=== PATIENT | female | born 1980 | race Caucasian/White ===

== ENCOUNTER 2016-12-25 16:10 | Inpatient (IN) | payer OTHER ==
--- NOTE | ~2016-12-25 | DS ---
Unit #: [id number] #: [id number] Patient: CARLITO LUDWIG [id number] [facility] [address] [place] [address] [id number] MR#: [id number] NAME: CARLITO LUDWIG ROOM: P207 Age: 36 Sex: F Admission Date: 12/25/2016 : 1980 Discharge Date: 12/28/2016 Attending Physician: Dimitri Rios M.D. Primary Care Physician: Primary Care Physician No DISCHARGE SUMMARY REASON FOR ADMISSION Detox from heroin. DIAGNOSTIC STUDIES LABORATORY RESULTS: Remarkable for urine drug screen positive for cocaine and opioid. HOSPITAL COURSE The patient was admitted to inpatient unit on . The patient was treated with group therapy, individual therapy, and medication management. The patient responded well with the above modalities of treatment and detox protocol. Subsequently, the patient was discharged with a plan to follow up in outpatient program. DISCHARGE MEDICATIONS None. DISCHARGE DIAGNOSES Psychiatric: 1. Opioid use disorder, severe, F11.20. 2. Cocaine use disorder, severe, F14.20. 3. Mood disorder, not otherwise specified. Secondary diagnosis: Deferred. Medical diagnoses: Degenerative joint disease, chronic pain. Stressors: Psychosocial stressors. DISCHARGE INSTRUCTIONS The patient is to follow up in outpatient clinic as per social worker assistant. CONDITION ON DISCHARGE The patient was pleasant and cooperative. Denied any psychotic symptom or any suicidal ideation. PROGNOSIS Guarded. DIET AND ACTIVITY As tolerated. Dictated by... Unit #: [id number] #: [id number] Patient: CARLITO LUDWIG Bessy Bundy/bharatl TD: 12/28/2016 22:13 JOB #: [id number] DISCHARGE SUMMARY X Dimitri Rios MD X DISCHARGE SUMMARY
--- NOTE | ~2016-12-25 | HP ---
Unit #: [id number] #: [id number] Patient: CARLITO LUDWIG [id number] [facility] [address] [place] [address] [id number] MR#: [id number] NAME: CARLITO LUDWIG ROOM: P207 Age: 36 Sex: F Admission Date: 12/25/2016 : 1980 Attending Physician: Dimitri Rios M.D. Admitting Physician: Dimitri Rios M.D. Primary Care Physician: Primary Care Physician No HISTORY AND PHYSICAL HISTORY OF PRESENT ILLNESS The patient is a 36-year-old female who is requesting detox from heroin and cocaine. PAST MEDICAL HISTORY 1. Reflux. 2. Degenerative disc disease. PAST SURGICAL HISTORY Gastric bypass surgery. ALLERGIES Penicillin, latex, adhesive, Ultram, Neurontin and lactose. SOCIAL HISTORY Patient is unemployed and has been homeless for 5 days. She endorses tobacco, crack cocaine, amphetamines and heroin. FAMILY HISTORY Medically noncontributory. REVIEW OF SYSTEMS CONSTITUTIONAL: Denies fever. Endorses chills. HEENT: Denies sore throat, ear pain or runny nose. CARDIOVASCULAR: Denies chest pain, irregular heart rhythm or palpitations. CHEST: Denies shortness of breath or cough. No hemoptysis. GASTROINTESTINAL: Endorses nausea. Denies vomiting, diarrhea or chronic constipation. ENDOCRINE: Denies increased thirst or urination. Denies recent significant weight loss or gain. GENITOURINARY: Denies dysuria, frequency, or hematuria. SKIN: Denies rashes. HEMATOLOGIC: Denies increased bleeding or bruising. MUSCULOSKELETAL: Denies hot, swollen joints. No generalized muscle pain. NEUROLOGIC: Denies problems with speech, vision, numbness, tingling. Denies loss of bowel or bladder control. PHYSICAL EXAMINATION GENERAL: Patient is awake, alert, in no acute distress. VITAL SIGNS: Temperature 98.4, heart rate 88, respirations 18, blood pressure 120/67. HEIGHT: 5 feet 6 inches. WEIGHT: 150 pounds. Unit #: [id number] #: [id number] Patient: CARLITO LUDWIG SKIN: Warm, dry without any unusual rashes or lesions. HEENT: Head is atraumatic, normocephalic. Pupils equal, round, reactive. Extraocular movements are intact. No drainage from ears or nares. NECK: Supple. Trachea is midline. HEART: Regular rate and rhythm. LUNGS: Clear. ABDOMEN: Soft, nontender, nondistended. : Not done. EXTREMITIES: No clubbing, edema or cyanosis. NEUROLOGICAL: Cranial nerves II through XII intact. No focal deficits. Sensory and motor functioning are grossly normal. Moves all extremities well. Coordination, gait is normal. Deep tendon reflexes intact. IMPRESSION 1. Psychiatric admission. 2. Detox. RECOMMENDATIONS PSYCHIATRIC: Will be per psychiatry. MEDICAL: I see no contraindication to participate in facility activities. MEDICAL PROGNOSIS Fair. MEDICAL CONDITION Stable. Dictated by... Lolita Alvares A.P.R.N. AM/deni TD: 12/25/2016 22:46 JOB #: [id number] HISTORY AND PHYSICAL X Lolita Alvares LINEN SUPERVISOR X HISTORY AND PHYSICAL
--- NOTE | ~2016-12-25 | PN ---
Unit #: [id number] #: [id number] Patient: CARLITO LUDWIG [id number] [facility] [address] [place] [address] [id number] MR#: [id number] NAME: CARLITO LUDWIG ROOM: P207 Age: 36 Sex: F Admission Date: 12/25/2016 : 1980 Attending Physician: Dimitri Rios M.D. Admitting Physician: Dimitri Rios M.D. Primary Care Physician: Primary Care Physician Lsiandra ESPINOZA NOTES DATE 12/26/2016 DISCUSSION Ms. Natarajan is a 36-year-old female, seen on 12/26/2016. The patient is isolative, guarded, flat affect. The patient's vital signs, temperature 98.4, pulse 81, and blood pressure 107/65. Height is 5 feet 6 inches. The patient reported still having withdrawal symptoms from opiate, sad, and dysphoric. REVIEW OF SYSTEMS Complete review of systems unremarkable. MENTAL STATUS EXAMINATION General appearance: Patient casually dressed. Attention span and concentration, fair. Oriented to place and person. Mood and affect, sad and dysphoric, and anxious. Speech, regular rate. Thought process, goal-directed. Association, the patient denied any thoughts of harming self or others but guarded. Recent and remote memory, poor. Insight and judgment, poor. DIAGNOSIS Opiate use disorder, severe. ASSESSMENT/PLAN Advised to continue with the current treatment and behavior modification program on the inpatient unit, if needed consider further adjustment and continue with the detox protocol. Dictated by... Bessy Bundy/beverly TD: 12/29/2016 09:33 JOB #: [id number] Unit #: [id number] #: [id number] Patient: CARLITO LUDWIG JOSH PROGRESS NOTES X Dimitri Rios MD PROGRESS NOTE
--- NOTE | ~2016-12-25 | PA ---
Unit #: [id number] #: [id number] Patient: CARLITO LUDWIG [id number] [facility] [address] [place] [address] [id number] MR#: [id number] NAME: CARLITO LUDWIG ROOM: P207 Age: 36 Sex: F Admission Date: 12/25/2016 : 1980 Date of Assessment: 12/26/2016 Attending Physician: Dimitri Rios M.D. Admitting Physician: Dimitri Rios M.D. Primary Care Physician: Primary Care Physician No PSYCHIATRIC ASSESSMENT INFORMANT Patient's reliability, fair and chart reliability, good. CHIEF COMPLAINT Needing detox from heroin. HISTORY OF PRESENT ILLNESS Ms. Natarajan is a 36-year-old female, seen on . The patient presented with detoxing from heroin. The patient has a history of previous treatments at [facility] in 2016 and at [facility]. The patient is currently homeless. Reported use of opioid and cocaine. The patient is currently using 3 g of heroin IV. The patient reported using 1 g of crack cocaine through nasally. The patient reports scoring 12 on COWS score. The patient reported history of suicide attempt once, but currently denies suicidal ideation. The patient denied any psychotic symptom or any homicidal ideation. The patient reported tobacco use, age of onset 16; crack cocaine, age of onset 32; opioid, age of onset 32; amphetamine, age of onset 34. The patient denied any history of blackout, any HIV, or hepatitis. History of IV drug use. History of withdrawal symptoms, abdominal cramping, muscle cramping, diarrhea, headache, nervousness, poor appetite, sleep problem, and tremor. PAST PSYCHIATRIC HISTORY Remarkable for history of previous treatment as mentioned above. FAMILY HISTORY AND SOCIAL HISTORY The patient has a poor support and homeless. Family psychiatric illness is remarkable for history of substance abuse in brother and depression and bipolar disorder on both sides of the family. MEDICAL HISTORY Remarkable for chronic pain and degenerative disk disease. Musculoskeletal; muscle strength and tone, no atrophy or abnormal movement. Gait normal. MEDICATION HISTORY None. ALLERGIES No known drug allergies. SUBSTANCE ABUSE HISTORY Please see above. Unit #: [id number] #: [id number] Patient: CARLITO LUDWIG REVIEW OF SYSTEMS HEENT: Eyes, clear. Ears, nose, mouth, and throat; clear. CARDIOVASCULAR: Unremarkable. RESPIRATORY: Unremarkable. GI: Unremarkable. : Unremarkable. SKIN: Unremarkable. LYMPH NODE: Unremarkable. NEUROLOGIC: Unremarkable. ENDOCRINE: Unremarkable. HEMATOLOGIC: Unremarkable. ALLERGIC/IMMUNOLOGIC: Unremarkable. MUSCULOSKELETAL: Muscle strength and tone, no atrophy or abnormal movement. Gait normal. MENTAL STATUS EXAMINATION CONSTITUTIONAL: Measurement of vital signs; temperature is 98.4, pulse 81, respirations 18, blood pressure 107/70, height 5 feet 6 inches, weight 150 pounds. GENERAL APPEARANCE: The patient did not show any facial deformity. MUSCULOSKELETAL: Please see above. PSYCHIATRIC EXAMINATION Description of speech; regular rate, normal volume. Description of thought process, goal directed. Description of association, intact. Description of abnormal psychotic thinking; the patient denied any hallucination or delusions, but mood lability, substance abuse. Description of the patient's judgment, concerning. Everyday activity, poor. Social situation, poor and concerning. Psychiatric condition, poor. Complete mental status examination; oriented in time, place, and person. Attention span and concentration, fair. Language, able to name object, repeat phrases. Fund of knowledge, aware of current event, passive vocabulary intact. Mood and affect, sad and dysphoric. Insight and judgment, fair to poor. ASSETS AND LIABILITIES Assets; the patient is articulate, able to take care of her ADL. Liability; history of substance abuse and depression. ADMITTING DIAGNOSES Psychiatric: 1. Opioid use disorder, severe, F11.20. 2. Cocaine use disorder, severe, F14.20. 3. Mood disorder, not otherwise specified. Secondary diagnosis: Deferred. Medical diagnosis: Degenerative joint disease, chronic pain. Stressors: Psychosocial stressors. PSYCHIATRIC PLAN AND TREATMENT GOAL AND DISCHARGE PLAN 1. Advised to admit the patient on the inpatient unit. Provide safe, supportive, and structured environment. 2. Ordered labs; CBC, CMP, UA, and UDS. 3. Precaution for aggression, self-harm, detox monitoring. 4. Detox protocol, the patient is to attend all the programing. If Unit #: [id number] #: [id number] Patient: CARLITO LUDWIG needed, consider further adjustment of medication. 5. Treatment goal is to attain euthymic mood, gain insight into her problem, learn coping skills. 6. Discharge plan; plan is to stabilize the patient and consider followup in outpatient program. ESTIMATED LENGTH OF STAY 5 days. Dictated by... Bessy Bundy/ghassan TD: 12/27/2016 04:43 JOB #: [id number] PSYCHIATRIC ASSESSMENT X Dimitri Rios MD PSYCHIATRIC ASSESSMENT
--- NOTE | ~2016-12-25 | DS ---
Unit #: [id number] #: [id number] Patient: ROSA ISELA LUDWIG [id number] [place] [address] [id number] MR#: [id number] NAME: ROSA ISELA LUDWIG ROOM: P207 Age: 36 Sex: F Admission Date: 12/25/2016 : 1980 Discharge Date: 12/28/2016 Attending Physician: Dimitri Rios M.D. Primary Care Physician: Primary Care Physician No DISCHARGE SUMMARY DISCUSSION Rosa Isela Montana is a 36-year-old female, seen on 12/27/2016. The patient interviewed, chart reviewed, and obtained information from nursing staff. The patient was compliant and cooperative. Mood was sad, dysphoric, flat affect, guarded. The patient's vital signs; temperature 98.9, pulse 70, and blood pressure 92/57. Complete review of systems unremarkable. MENTAL STATUS EXAMINATION General appearance, the patient dressed casually. Attention span and concentration, fair. Oriented in place and person. Mood and affect were sad, dysphoric, anxious. Speech, regular rate. Thought process, goal directed. The patient denied any thoughts of harming self or others, but somewhat seclusive, isolative, guarded. Recent and remote memory, poor. Insight and judgment, poor. DIAGNOSIS Opioid use dependence and withdrawal. HOSPITAL COURSE The patient was admitted to inpatient unit. The patient was treated with chemical dependency group, expressive therapy, psychoeducation, psychotherapy, and also detox protocol and detox monitoring. The patient responded well with the above modalities of treatment. Subsequently, the patient was discharged with a plan to follow up in outpatient program. DISCHARGE MEDICATIONS None. DISCHARGE DIAGNOSES Psychiatric: 1. Opioid use disorder, severe, F11.20. 2. Mood disorder, not otherwise specified, F32.9. Secondary diagnosis: Deferred. Medical diagnosis: None. Stressors: Psychosocial stressors. DISCHARGE INSTRUCTIONS The patient is to follow up in outpatient clinic as per forensic social worker. CONDITION ON DISCHARGE Unit #: [id number] #: [id number] Patient: ROSA ISELA LUDWIG The patient was pleasant and cooperative. Denied any psychotic symptom or any suicidal ideation. PROGNOSIS Guarded. DIET AND ACTIVITY As tolerated. Dictated by... Dimitri Rios M.D. C/modl TD: 12/28/2016 11:30 JOB #: [id number] DISCHARGE SUMMARY X Dimitri Rios MD DISCHARGE SUMMARY
[2016-12-26 12:44] LABS: BASOPHIL% 0.8 % (0-2.5); DIFF IND NO; EOSINOPHIL% 0.7 % (0.0-7.0); HEMOGLOBIN 11.9 gm/dL (12.0-16.0); LYMPHOCYTE% 21.1 % (17.0-45.0); MEAN CELL VOLUME 85.5 FL (83-96); MEAN CORPUSCULAR HEMOGLOBIN 28.3 PG (28-34); MEAN CORPUSCULAR HGB CONC 33.1 g/dL (30-36); MEAN PLATELET VOLUME 6.7 FL (6.5-11.5); MONOCYTE# 0.5 X10e3 (0-1.0); MONOCYTE% 9.5 % (3.0-12.0); NEUTROPHIL# 3.4 X10e3 (1.5-7.1); NEUTROPHIL% 67.9 % (40-75); PLATELET COUNT 413 X10e3 (140-420); RED BLOOD COUNT 4.22 X10e (3.90-5.30)
[2016-12-26 13:04] LABS: ALBUMIN SERUM 3.1 g/dL (3.5-5.0); ALKALINE PHOSPHATASE 66 U/L (32-92); ALT (SGPT) 8 U/L (10-40); AST (SGOT) 15 U/L (10-42); BILIRUBIN,TOTAL 0.3 mg/dL (0.2-2.0); BLOOD UREA NITROGEN 8 mg/dL (9-23); BUN/CREATININE RATIO 11.42; CARBON DIOXIDE 27 mmol/L (22-31); CHLORIDE 110 mmol/L (100-111); CREATININE SERUM 0.7 mg/dL (0.6-1.4); GLOM FILT RATE Estimated ABOVE60 mL/min (>60); GLUCOSE FASTING 120 mg/dL (70-110); POTASSIUM 4.3 mmol/L (3.5-5.1); PROTEIN TOTAL SERUM 5.6 g/dL (6.0-8.3); SODIUM 143 mmol/L (135-145)
[2016-12-26 13:17] LABS: THYROID STIMULATING HORMONE 0.21 uIU/ml (0.34-5.60)
[2016-12-26 13:24] LABS: FREE THYROXIN (T4) 0.84 ng/dL (0.58-1.64)
[2016-12-28 12:40] LABS: URINE APPEARANCE TURBID; URINE BLOOD NEG (NEG); URINE COLOR DK YELLOW; URINE GLUCOSE NEG (NEG); URINE KETONE TRACE (NEG); URINE LEUKOCYTE ESTERASE TRACE (NEG); URINE NITRATE NEG (NEG); URINE PROTEIN TRACE (NEG); URINE SPECIFIC GRAVITY 1.033 (1.003-1.035)
[2016-12-28 12:55] LABS: URINE BILIRUBIN NEG (NEG)
[2016-12-28 13:11] LABS: URBCS1 AUWI 0-2 /[HPF] (0-2); URINE BACTERIA AUWI NEG (NEGATIVE); URINE SQUAMOUS EPITHELIAL CELL OCCAS /[HPF]; UWBCS1 AUWI 0-2 (0-5)
[2016-12-28 13:16] LABS: AMPHETAMINE NEG (NEG); BARBITURATES NEG (NEG); BENZODIAZEPINES NEG (NEG); COCAINE POS (NEG); MARIJUANA NEG (NEG); OPIATES POS (NEG); TRICYCLIC ANTIDEPRESSANTS NEG (NEG); U METHADONE NEG (NEG)
== END 2016-12-28 09:09 | disposition home or self-care (01) | DRG 897 ==
LOC: P2S 16:10
PROVIDERS: Psychiatry & Neurology Psychiatry
PROC: HZ2ZZZZ Detoxification Services for Substance Abuse Treatment (ICD-10-PCS; principal; 2016-12-25)
DX: F11.23 Opioid dependence with withdrawal (principal); F14.20 Cocaine dependence, uncomplicated; F39 Unspecified mood [affective] disorder; M19.90 Unspecified osteoarthritis, unspecified site; G89.29 Other chronic pain
CPT/HCPCS: 80053; 80307; 81003; 84439; 84443; 85025